=== PATIENT | female | born 1995 | race African-American/Black ===

== ENCOUNTER 2017-08-05 17:00 | Emergency (ER) | payer SELFPAY ==
[~2017-08-05] VITALS: Ht 175.3 cm; Wt 64.9 kg
[2017-08-05 17:00] VITALS: BP 127/84
[2017-08-05] MEDS ORDERED: predniSONE 20 MG TABLET PO ONE (18:00)
[2017-08-05] MEDS ORDERED: predniSONE 20 MG TABLET ONE (18:01)
== END 2017-08-05 18:09 | disposition home or self-care (01) ==
LOC: ER 17:03
DX: T78.40XA Allergy, unspecified, initial encounter (principal); Z60.2 Problems related to living alone
CPT/HCPCS: A4606; Z7610